=== PATIENT | male | born 1980 | race Caucasian/White ===

== ENCOUNTER → 2021-05-28 10:20 | Outpatient (BNVA) | payer OTHER, SELFPAY | PROVIDERS: Family Provider Family Medicine; PCP Family Medicine; Visit Provider Nurse Practitioner Family | DX: R05 Cough (principal); J01.90 Acute sinusitis, unspecified; Z20.822 Contact with and (suspected) exposure to COVID-19 | CPT/HCPCS: 87635 ==

== ENCOUNTER → 2021-05-31 09:09 | Outpatient (BNVA) | payer OTHER, SELFPAY | PROVIDERS: Family Provider Family Medicine; PCP Family Medicine; Visit Provider Nurse Practitioner Family | DX: R06.02 Shortness of breath (principal); R53.83 Other fatigue; R63.5 Abnormal weight gain; R10.9 Unspecified abdominal pain; E11.65 Type 2 diabetes mellitus with hyperglycemia | CPT/HCPCS: 80053; 83036; 83690; 84443; 85025 ==

== ENCOUNTER → 2021-08-14 14:30 | Outpatient (BNVA) | payer OTHER, SELFPAY | PROVIDERS: Family Provider Family Medicine; PCP Family Medicine; Visit Provider Nurse Practitioner Family | DX: Z20.822 Contact with and (suspected) exposure to COVID-19 (principal); U07.1 COVID-19 | CPT/HCPCS: 87426 ==

== ENCOUNTER 2021-08-16 12:06 | Outpatient (CLI) | payer OTHER, SELFPAY ==
[2021-08-16 12:20] VITALS: BP 147/85; PULSE 77; RESP 18; TEMP 36.3; O2SAT 95
[2021-08-16 12:41] VITALS: BMI 38.0
[2021-08-16 12:57] VITALS: BP 123/86; PULSE 75; RESP 18; O2SAT 95
[2021-08-16 13:47] VITALS: BP 127/87; PULSE 68; RESP 18; O2SAT 97
== END 2021-08-16 12:07 | disposition home or self-care (01) ==
PROVIDERS: PCP Family Medicine; Visit Provider Nurse Practitioner Family
DX: U07.1 COVID-19 (principal)
CPT/HCPCS: 96365